=== PATIENT | male | born 1975 | race Two or more races ===

== ENCOUNTER 2017-07-20 15:05 | Emergency (ER) | payer OTHER ==
[2017-07-20 15:10] VITALS: PULSE 70; RESP 18; TEMP 97.7; O2SAT 95
--- NOTE | 2017-07-20 15:38 | EDPHY ---
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 Over the last 2 hours he has noted some numbness in his left cheek and a little bit of left facial droop around the corner of his mouth. He did incidentally go to the dentist today but they did not use any anesthetic on the left side of his mouth. The patient denies any other neurologic symptoms including denying double vision or ataxia, headache or weakness or numbness in extremities, difficulty with speech or balance. Symptoms mild and it feels identical to him as previous Davis's palsy. REVIEW OF SYSTEMS: Eye: no change in vision ENT: no sore throat or hearing loss Cardiac: no chest pain or syncope Pulmonary: Not short of breath Abdomen: No abdominal pain Musculoskeletal: Patient is a little bit of neck pain and did see a chiropractor about 2 and half weeks ago but his neck feels better now. Skin: no rash or vesicles Neuro: no headache Constitutional: no fever : Creatinine baseline 0.9, no symptoms A comprehensive 10 point review of systems is otherwise negative aside from elements mentioned in the history of present illness. PAST MEDICAL HISTORY: Previous dialysis status post kidney transplant in 2014. 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 Social history: Patient of Dr. Diaz and Dr. Velasco General Appearance: Alert and conversant, cooperative. Eyes: No scleral icterus. Extraocular motion intact, pupils equal and reactive. ENT, Mouth: Normal mucous membranes. No trismus. Respiratory: Normal respiratory effort, breath sounds equal, lungs are clear to auscultation. Cardiovascular: Regular rate and rhythm. Gastrointestinal: Abdomen is soft and non tender. Neurological: Alert and oriented x3. Normally conversant. Slight left facial droop noted in the cheek and mouth, as well as on the left forehead which clearly does not wrinkle as much as the right side. Skin: Warm and dry, no rashes. No vesicles. Musculoskeletal: No peripheral edema and no joint swelling. Normal range of motion of the neck. Psychiatric: Not agitated. Emergency Department course/MDM: Patient has 2 hours of left facial droop which does involve the left side of his forehead. He is currently on prednisone and would definitely like to try and not change the dosing of that because he has been stable as far as his immunosuppressant regimen. Valtrex prescribed. Discussed taping his eyelid shut if he can't get all the way closed. I think it is unlikely that he has intracranial mass or bleed or ischemic or hemorrhagic stroke or vertebral or carotid dissection. Smoking Status: Never smoked Constitutional: Initial Vital Signs Temperature (C) 36.5 C 07/20/17 15:05 Heart Rate 70 07/20/17 15:05 Respiratory Rate 18 07/20/17 15:05 Blood Pressure 136/98 H 07/20/17 15:05 O2 Sat (%) 95 07/20/17 15:05 O2 Delivery Mode Room Air Allergies/Adverse Reactions: No Known Allergies Allergy (Verified 07/20/17 15:06) Home Medications: Medication Instructions Recorded Alendronate Sodium [Fosamax 70 MG 70 mg PO MO@0700 07/20/17 (*)] Amlodipine Besylate [Norvasc] 5 mg PO 07/20/17 Escitalopram Oxalate [Lexapro] 10 mg PO 07/20/17 Everolimus [Zortress] 1.25 mg PO 07/20/17 Lisinopril [Zestril 10 mg (*)] 10 mg PO 07/20/17 Pravastatin Sodium [Pravachol] 40 mg PO 07/20/17 Tacrolimus Anhydrous [Prograf 0.5 2.5 mg PO 07/20/17 MG (*)] Temazepam [Restoril 15 MG (*)] 15 mg PO HSPRN PRN 07/20/17 Valacyclovir HCl [Valtrex] 1,000 mg PO TID #21 tab 07/20/17 clonAZEPAM [Klonopin] 0.5 mg PO 07/20/17 MDM/Departure - Depart Disposition: Home, Routine, Self-Care Clinical Impression: Davis's palsy Condition: Good Instructions: Davis Palsy (ED) Prescriptions: Valacyclovir HCl [Valtrex] 1,000 mg PO TID #21 tab Referrals: ANA ARROYO [Primary Care Provider] - As per Instructions
[2017-07-20 15:44] VITALS: BP 144/100
== END 2017-07-20 15:46 | disposition home or self-care (01) ==
DX: G51.0 Bell's palsy (principal)

== ENCOUNTER → 2017-08-09 | Outpatient (CLI) | payer OTHER ==
[~2017-08-09] MED LIST: IOPAMIDOL (ISOVUE-300) 100 ML BTL ONE
== END ==
LOC: FIMAGING 11:53
PROVIDERS: ATTEND Specialist
DX: R31.21 Asymptomatic microscopic hematuria (principal); Z94.0 Kidney transplant status; K76.0 Fatty (change of) liver, not elsewhere classified
CPT/HCPCS: 74178; Q9967

== ENCOUNTER → 2018-05-09 | Outpatient (CLI) | payer OTHER | LOC: FIMAGING 09:13 | PROVIDERS: ATTEND Internal Medicine Nephrology | DX: Z13.820 Encounter for screening for osteoporosis (principal); M85.89 Other specified disorders of bone density and structure, multiple sites; E21.3 Hyperparathyroidism, unspecified; Z94.0 Kidney transplant status ==

== ENCOUNTER → 2018-05-09 | Outpatient (CLI) | payer OTHER, MEDICAID | LOC: FIMAGING 09:16 | PROVIDERS: ATTEND Internal Medicine | DX: R93.2 Abnormal findings on diagnostic imaging of liver and biliary tract (principal); M85.89 Other specified disorders of bone density and structure, multiple sites ==

== ENCOUNTER 2018-05-11 22:08 | Emergency (ER) | payer OTHER, MEDICAID ==
[2018-05-11 22:25] VITALS: BP 114/88
--- NOTE | 2018-05-11 23:10 | EDPHY ---
H & P Stated Complaint: TWISTED L ANKLE WHILE WALKING Time Seen by Provider: 05/11/18 22:28 HPI/ROS: Chief Complaint: Left ankle injury HPI: 43-year-old male who inverted his left ankle while walking. He heard a popping sensation. He has not been able to weight bear. No prior injuries. Did not fall. Did not his head. No other complaints at this time. ROS: 10 point Review of Systems is negative except as noted in the HPI. PMH: Renal failure status post kidney transplant Social History: No smoking, no alcohol, no recreational drug use Family History: non-contributory Physical Exam: General: Awake, alert, no acute distress Left lower extremity, hip is nontender, full range of motion at pain, he is nontender, full range without pain. Left ankle: Patient has no medial or lateral malleolar tenderness. He has tenderness over the anterior talofibular ligament with mild ecchymosis and swelling. No midfoot tenderness. He is unable to move it secondary to pain. Sensations intact. 2+ dorsalis pedis pulses. Capillary refills less than 2 sec. Skin: No rash - Personal History Current Tetanus/Diphtheria Vaccine: Yes Current Tetanus Diphtheria and Acellular Pertussis (TDAP): Yes Tetanus Vaccine Date: 2009 - Medical/Surgical History Hx Asthma: No Hx Chronic Respiratory Disease: No Hx Diabetes: No Hx Cardiac Disease: No Hx Renal Disease: Yes Hx Cirrhosis: No Hx Alcoholism: No Hx HIV/AIDS: No Hx Splenectomy or Spleen Trauma: No Other PMH: Kidney failure, kidney transplant 2014. [place] Palsy on right - Social History Smoking Status: Never smoked Constitutional: Initial Vital Signs Temperature (C) 37.1 C 05/11/18 22:22 Heart Rate 94 05/11/18 22:22 Respiratory Rate 18 05/11/18 22:22 Blood Pressure 114/88 H 05/11/18 22:22 O2 Sat (%) 92 05/11/18 22:22 O2 Delivery Mode Room Air Allergies/Adverse Reactions: No Known Allergies Allergy (Verified 05/11/18 22:24) Home Medications: Medication Instructions Recorded Alendronate Sodium [Fosamax 70 MG 70 mg PO MO@0700 07/20/17 (*)] Amlodipine Besylate [Norvasc] 5 mg PO 07/20/17 Escitalopram Oxalate [Lexapro] 10 mg PO 07/20/17 Everolimus [Zortress] 1.25 mg PO 07/20/17 Lisinopril [Zestril 10 mg (*)] 10 mg PO 07/20/17 Pravastatin Sodium [Pravachol] 40 mg PO 07/20/17 Tacrolimus Anhydrous [Prograf 0.5 2.5 mg PO 07/20/17 MG (*)] Temazepam [Restoril 15 MG (*)] 15 mg PO HSPRN PRN 07/20/17 Valacyclovir HCl [Valtrex] 1,000 mg PO TID #21 tab 07/20/17 clonAZEPAM [Klonopin] 0.5 mg PO 07/20/17 Medical Decision Making - Diagnostics Imaging Results: Imaging Impressions Ankle X-Ray 05/11/18 22:35 Impression: Possible distal calcaneal avulsion, adjacent to the calcaneal cuboid joint. Correlation with the site of symptoms is recommended. 2. Left Ankle, Three Views History: Pain, post trauma. Inversion injury. Findings: No fracture, effusion, or dislocation is identified. The ankle mortise is normally aligned. The talar dome looks normal. Impression: Nothing acute identified. Foot X-Ray 05/11/18 22:35 Impression: Possible distal calcaneal avulsion, adjacent to the calcaneal cuboid joint. Correlation with the site of symptoms is recommended. 2. Left Ankle, Three Views History: Pain, post trauma. Inversion injury. Findings: No fracture, effusion, or dislocation is identified. The ankle mortise is normally aligned. The talar dome looks normal. Impression: Nothing acute identified. ED Course/Re-evaluation: X-rays negative. Patient is placed in an start splint and and give crutches. He will follow up with Orthopedics. Departure - Departure Disposition: Home, Routine, Self-Care Clinical Impression: Ankle sprain Condition: Good Instructions: Ankle Sprain (ED), Crutch Instructions (ED), Ankle Stirrup Splint (ED), R.I.C.E. Treatment (ED) Additional Instructions: You may take acetaminophen, 1000 mg 3 times a day for pain. Apply ice and elevated her instructions. Follow up with Orthopedics in 3-4 days for further evaluation. Referrals: ANA ARROYO [Primary Care Provider] - As per Instructions Anahi Douglas MD [Medical Doctor] - As per Instructions
== END 2018-05-11 23:26 | disposition home or self-care (01) ==
DX: S93.492A Sprain of other ligament of left ankle, initial encounter (principal); X50.9XXA Other and unspecified overexertion or strenuous movements or postures, initial encounter; Y99.8 Other external cause status; Y93.01 Activity, walking, marching and hiking
CPT/HCPCS: 73610; 73630; 99283; L4350

== ENCOUNTER 2018-11-26 11:17 | Emergency (ER) | payer OTHER ==
[2018-11-26] MEDS ORDERED: OXYCODONE/APAP 5/325 TAB PO ONE (11:48)
--- NOTE | 2018-11-26 12:05 | EDPHY ---
General - History Smoking Status: Never smoked Time Seen by Provider: 11/26/18 12:03 Narrative: CLINICAL IMPRESSION: Comminuted, displaced right distal radial and ulnar styloid fracture ASSESSMENT/PLAN: Patient is a 43-year-old male with a significant history of kidney transplantation, hypertension and hyperlipidemia who presents with complaint of right forearm pain after sustaining a fall while skiing. Patient is nontoxic- appearing, he is in no acute distress on arrival. Patient with obvious deformity of the distal right forearm, x-rays reveal comminuted and displaced distal radial and ulnar styloid fractures. There was no evidence of open fracture, dislocation, compartment syndrome or neurovascular compromise. His history and physical examination is most consistent with acute displaced, comminuted distal radius and ulnar styloid fracture of the right arm. A hematoma block was performed as discussed in the procedure note, he was placed in finger traps and then reduced by Dr. Cobos. The patient was placed in a sugar-tong splint. CMS intact post splint placement. Patient was given Percocet in addition to the hematoma block with improvement of his discomfort. Orthopedic surgery referral was provided, he will call tomorrow morning to schedule an appointment for repeat examination. Return precautions discussed- patient to return to the emergency Department for significantly worsening or uncontrolled pain, significant swelling, numbness or tingling of the extremity, paleness or coolness of his digits, fever or for any other concerning symptom. The patient verbalizes understanding and she is in agreement with this plan. Case discussed with and patient seen by Dr. Cobos DIFFERENTIAL DX: Fracture, dislocation, compartment syndrome, DVT, neurovascular compromise ED PROCEDURES: Procedure: Hematoma block. A hematoma block was performed for displaced right distal radial fracture. Combination of 0.5% bupivacaine and 1% lidocaine. The patient experienced improvement of discomfort. The procedure was performed by myself. Procedure: Fracture reduction. The right forearm was reduced in the usual fashion without complications. The patient was placed in a sugar-tong splint by emergency Room technologist under direct supervision. Post reduction the patient's neurovascular exam is normal. Post reduction x-ray demonstrates adequate reduction of the fracture to the anatomic position. The procedure was performed by Dr. Cobos. ED COURSE: 12:10 p.m.: Case discussed with Dr. Cobos 13:05: Reduction performed by Dr. Cobos. CHIEF COMPLAINT: Right forearm pain HPI: Patient is a 43-year-old male with a history of kidney transplant, hypertension and hyperlipidemia who presents to the emergency department with acute right forearm pain after sustaining a fall while snowboarding. Patient reports he fell causing him to bend his arm backwards, he reports feeling a pop and having significant pain in the distal-mid forearm. Patient was seen at [facility], placed in immobilization and arrived in the emergency department by private vehicle. Patient denies any numbness or tingling of the hand or digits , he denies any open wound. He was wearing a helmet, did hit his head lightly however there was no loss of consciousness. He is not on aspirin or any anticoagulation. He denies any headache, dizziness, neck or back pain. He denies any other injury or complaint. PAST MEDICAL HISTORY: Kidney transplant, hypertension, hyperlipidemia Pertinent Past Surgical History: Kidney transplant Family History: Noncontributory Social History: Denies ROS: A full 10 point review of systems was negative except for those mentioned in HPI. PHYSICAL EXAM: General Appearance: Well-developed, uncomfortable appearing however not toxic- appearing. HEENT: TMs are clear bilaterally no perforation or FB, no injection, no evidence of serous or mucopurulent otitis. Oropharynx clear is no erythema or exudates, no tonsillar hypertrophy or asymmetry. Dentition without abnormality. Eyes: PERRLA, no acute vision change, nystagmus, swelling, discharge, pain or photosensitivity. Conjunctiva pink, no pallor or injection Neck: Supple, nontender, no lymphadenopathy, no midline pain, FROM, no meningismus. Respiratory: There are no retractions, lungs are clear to auscultation. Cardiac: Regular rate and rhythm, no murmurs or gallops. Gastrointestinal: Abdomen is soft, nontender, bowel sounds normal, no masses/ hernia, no rigidity, guarding or focal peritoneal findings. Skin: Warm, dry, no rashes, no nodules on palpation. Upper Extremities: Right upper extremity unremarkable, intact distal pulses, Full range of motion intact, no tenderness, no ecchymosis or edema. Deformity noted to the distal right forearm. 2+ radial pulse. Right forearm compartment is soft. The radial, ulnar and median nerves were all tested. Radial nerve: Patient is able to extend wrist and fingers of the local joints. Ulnar nerve: Patient is able to abduct all fingers. Median nerve patient is able to oppose thumb to pinky. Two point discrimination intact at each digit. Lower Extremities: Intact distal pulses, No edema, No tenderness, No cyanosis, full range of motion intact, No calf tenderness bilaterally. MEDICAL DECISION MAKING: Patient was seen independently. Secondary supervising physician at time of evaluation was Dr. Cobos. Diagnosis: Distal radius and ulnar styloid fracture. New, requires workup Summary: See Assessment and Plan for summary of ED visit Clinical lab tests: Not applicable. Independent visualization of images, tracing, or specimens: Yes. Decision to obtain medical records or history from someone other than the patient: No Review / Summarize previous medical records: No Discussed patient with another provider: Yes, Dr. Cobos Patient Progress: Stable, discharged. (Amee Mcgregor) - Diagnostics Imaging Results: Imaging Impressions Wrist X-Ray 11/26/18 11:32 Impression: 1. Comminuted dorsally displaced and dorsally angulated distal right radius metaphyseal fracture. 2. Displaced comminuted ulnar styloid fracture. Wrist X-Ray 11/26/18 13:25 Impression: 1. Comminuted impacted distal right radius fracture with improved alignment but persistent slight dorsal subluxation and dorsal angulation as described above. 2. Displaced comminuted ulnar styloid fracture also noted. Procedures: Procedure: Reduction of Distal Radius Fracture Time-out completed immediately before the procedure. Placed on pulse oximeter. Neurovascular exam intact pre-procedure. Given a hematoma block. The right distal radius fracture was reduced.Reassessed post-procedure. Neurovascular status intact-Normal Motor and sensory exam. Exam indicated reduction. Confirmed reduction on X-ray. Splint applied by a nakita and reassessed by myself , Dr. Cobos. The procedure was performed by myself, Dr. Cobos. (Hill Cobos) - Objective Vital Signs: Initial Vital Signs Temperature (C) 36.7 C 11/26/18 11:22 Heart Rate 75 11/26/18 11:22 Respiratory Rate 18 11/26/18 11:22 Blood Pressure 147/100 H 11/26/18 11:22 O2 Sat (%) 97 11/26/18 11:22 O2 Delivery Mode Room Air Allergies/Adverse Reactions: No Known Allergies Allergy (Verified 05/11/18 22:24) Home Medications: Medication Instructions Recorded Alendronate Sodium [Fosamax 70 MG 70 mg PO MO@0700 07/20/17 (*)] Amlodipine Besylate [Norvasc] 5 mg PO 07/20/17 Escitalopram Oxalate [Lexapro] 10 mg PO 07/20/17 Everolimus [Zortress] 1.25 mg PO 07/20/17 Lisinopril [Zestril 10 mg (*)] 10 mg PO 07/20/17 Pravastatin Sodium [Pravachol] 40 mg PO 07/20/17 Tacrolimus Anhydrous [Prograf 0.5 2.5 mg PO 07/20/17 MG (*)] Temazepam [Restoril 15 MG (*)] 15 mg PO HSPRN PRN 07/20/17 clonAZEPAM [Klonopin] 0.5 mg PO 07/20/17 oxyCODONE/APAP 5/325 [Percocet 1 - 2 tab PO Q4H PRN #20 tab 11/26/18 5/325 (*)] Medications Given: Discontinued Medications Oxycodone/Acetaminophen (Percocet 5/325) 2 tab PO EDNOW ONE Stop: 11/26/18 11:49 Last Admin: 11/26/18 11:50 Dose: 2 tab Departure - Departure Disposition: Home, Routine, Self-Care Clinical Impression: Distal radius fracture, right Qualifiers: Encounter type: initial encounter Fracture type: closed Fracture morphology: unspecified fracture morphology Qualified Code(s): S52.501A - Unspecified fracture of the lower end of right radius, initial encounter for closed fracture Condition: Good Instructions: Arm Fracture in Adults (ED) Additional Instructions: DISCHARGE INSTRUCTIONS FROM YOUR DOCTOR Thank you for visiting our emergency department today. Please keep in mind that discharge from the emergency department does not mean that there is nothing wrong - it simply means that we have not identified an emergency condition that requires further evaluation or treatment in the hospital. Rest, ice (on and off), elevate the wrist and hand as possible above the level of the heart to decrease pain and swelling. Wear the splint as applied. Do not remove splint and do not get it wet. Take percocet as prescribed if needed for pain. Do not take this medication with tylenol or other tylenol-containing medications. Do not take this medication while you are drinking alcohol, driving, working, supervising persons or operating machinery. This medication can make you sleepy. You may need to take a stool softener, such as Colace, which is available over-the- counter, while you take this narcotic pain medicine, as it may make you constipated. Continue your regular medications as prescribed. Return for increased pain or swelling, numbness, tingling or weakness of the fingers, discoloration of the fingers, fever,inability to move your fingers or any other new, worsening or worrisome symptoms. People present with illnesses and injuries in different ways, and it is always possible that we have missed something. You may always return for re-evaluation if symptoms worsen or if they are not improving or if you develop new/different symptoms. Again, thank you for choosing our emergency department. We hope that you feel better. Referrals: ANA ARROYO [Primary Care Provider] - As per Instructions Denny Fernandez MD [Medical Doctor] - 1 day without fail (Call tomorrow morning) Prescriptions: oxyCODONE/APAP 5/325 [Percocet 5/325 (*)] 1 - 2 tab PO Q4H PRN #20 tab PRN Reason: Pain, Severe
[2018-11-26 14:03] VITALS: BP 113/79
== END 2018-11-26 14:03 | disposition home or self-care (01) ==
PROC: 0PSHXZZ Reposition Right Radius, External Approach (ICD-10-PCS; principal; 2018-11-26)
DX: S52.501A Unspecified fracture of the lower end of right radius, initial encounter for closed fracture (principal); V00.311A Fall from snowboard, initial encounter; Y93.23 Activity, snow (alpine) (downhill) skiing, snowboarding, sledding, tobogganing and snow tubing; Y92.828 Other wilderness area as the place of occurrence of the external cause; Y99.8 Other external cause status